=== PATIENT | female | born 1995 | race Caucasian/White ===

== ENCOUNTER 2024-07-08 20:27 | Emergency (ER) | payer OTHER ==
[~2024-07-08] VITALS: Ht 177.8 cm; Wt 99.8 kg
[2024-07-08 20:38] VITALS: BP 149/88; TEMP 98.2; O2SAT 98
[2024-07-08] MEDS: ALPRAZOLAM 0.25 MG TABLET PO ONE (21:00)
== END 2024-07-08 22:45 | disposition home or self-care (01) ==
LOC: ER 20:31
DX: R07.81 Pleurodynia (principal); R51.9 Headache, unspecified; M79.645 Pain in left finger(s); M54.2 Cervicalgia; I10 Essential (primary) hypertension; M54.12 Radiculopathy, cervical region; Z60.2 Problems related to living alone; V43.62XA Car passenger injured in collision with other type car in traffic accident, initial encounter; Y93.89 Activity, other specified; Y92.488 Other paved roadways as the place of occurrence of the external cause; Y99.8 Other external cause status
CPT/HCPCS: 71111-TC